=== PATIENT | female | born 1980 ===

== ENCOUNTER 2018-07-24 15:42 | Emergency (ER) | payer MEDICARE, MEDICAID ==
[~2018-07-24] VITALS: Ht 152.4 cm; Wt 61.0 kg
[~2018-07-24 15:42] MED LIST: CLIN-96 PO
[2018-07-24 15:55] VITALS: BP 110/66
[2018-07-24] MEDS ORDERED: TRAZ150T78 PO (16:53)
[2018-07-24] MEDS ORDERED: ONDA4TAB6 PO (16:53)
[2018-07-24] MEDS ORDERED: CLON-529 PO (16:53)
[2018-07-24] MEDS ORDERED: NICO-631 TD (16:53)
[2018-07-24] MEDS ORDERED: IBUP-1984 PO (16:53)
== END 2018-07-24 17:01 | disposition home or self-care (01) ==
LOC: ER 15:43
DX: F11.10 Opioid abuse, uncomplicated (principal); Z88.2 Allergy status to sulfonamides; Z79.2 Long term (current) use of antibiotics; Z79.899 Other long term (current) drug therapy; Z56.0 Unemployment, unspecified
CPT/HCPCS: 99283